=== PATIENT | male | born 1950 | race Caucasian/White ===

== ENCOUNTER 2022-10-29 07:38 | Day surgery (SDC) | payer MEDICARE, OTHER ==
[~2022-10-29] VITALS: Ht 175.3 cm; Wt 90.1 kg
[2022-10-29 08:59] VITALS: BP 170/90; PULSE 100; TEMP 98.5
[2022-10-29] MEDS ORDERED: ELIQUIS 5MG PO (09:01)
[2022-10-29] MEDS ORDERED: FOLIC ACID 11 MG/TA1 PO (09:02)
[2022-10-29] MEDS ORDERED: NORVASC 10MG10 MG PO (09:02)
[2022-10-29] MEDS ORDERED: PRINIVIL40 MG PO (09:04)
[2022-10-29] MEDS ORDERED: NORCO 325 MG-51 TAB PO (10:05)
[2022-10-29 10:10] VITALS: BP 163/78; PULSE 108; TEMP 97.5
[2022-10-29 10:25] VITALS: BP 183/88; PULSE 107
[2022-10-29 10:40] VITALS: BP 170/99; PULSE 124
--- NOTE | 2022-10-29 11:15 | NUR ---
1010-PT TO BAY 5 PER CART FROM OR. REPORT RECEIVED. VS OBTAINED. CALL LIGHT WITHIN REACH. PT RESTING COMFORTABLY AND DENIES ANY NEEDS AT THIS TIME. WILL CONTINUE TO MONITOR. 1030-PT TOLERATING APPLE JUICE AND DENIES ANYTHING TO EAT. PT VOIDED WITHOUT DIFFICULTY. 1045-IV DC'D AT THIS TIME. PT DRESSED WITHOUT ASSISTANCE. 1050-DISCHARGE EDUCATION COMPLETED WITH PT AND HIS . VERBALIZED UNDERSTANDING OF HOME AND FOLLOW UP CARE. ALL QUESTIONS ANSWERED. DISCHARGE PAPERWORK GIVEN TO PT. 1115-PT OFF UNIT PER WHEELCHAIR. PT DISCHARGED TO HOME WITH PER PERSONAL VEHICLE.
== END 2022-10-29 11:15 | disposition home or self-care (01) ==
LOC: SDCO 07:38
DX: C34.91 Malignant neoplasm of unspecified part of right bronchus or lung (principal); J90 Pleural effusion, not elsewhere classified
CPT/HCPCS: C1788; J0690; J1644; J2250; J2704; J2765; J7120

== ENCOUNTER 2022-12-21 06:47 | Outpatient (CLI) | payer MEDICARE ==
[~2022-12-21] VITALS: Ht 175.3 cm; Wt 88.8 kg
[~2022-12-21 06:47] MED LIST: ELIQUIS 5MG PO; FOLIC ACID 11 MG/TA1 PO; NORCO 325 MG-51 TAB PO; NORVASC 10MG10 MG PO; PRINIVIL40 MG PO
[2022-12-21 09:10] VITALS: BP 149/89; PULSE 84; TEMP 97.2
[2022-12-21 09:25] VITALS: BP 149/78; PULSE 76
[2022-12-21] MEDS ORDERED: DECADRON0.5 MG PO (09:32)
[2022-12-21] MEDS ORDERED: GLUCOSAMINE & C1 CA2 (09:34)
[2022-12-21] MEDS ORDERED: CENTRUM1 TA1 (09:34)
[2022-12-21 09:40] VITALS: BP 146/76; PULSE 76
--- NOTE | 2022-12-21 10:00 | NUR ---
09 LYING ON CART. AWAKE, ALERT. RESP UNLABORED. DENIES DYSPNEA. BANDAID RIGHT POSTERIOR CHEST CLEAAN DRY AND INTACT. HOB ELEVATED 40 DEGREES. CALLLIGHT AT SIDE. IN ROOM. 924 AWAKE, ALERT. RESP UNLABORED 54 DISCHARGE INSTRUCTIONS REVIEWED. PATIENT AND VERBALIZE UNDERSTANDING. COPY PROVIDED IN DISCHARGE FOLDER 0969 SITS ON EDGE OF BED. DRESSES SELF
[2022-12-21 10:53] VITALS: BP 154/78; PULSE 90; TEMP 97.2
== END 2022-12-21 10:03 | disposition home or self-care (01) ==
LOC: SDCO 06:47
DX: J91.0 Malignant pleural effusion (principal); C34.91 Malignant neoplasm of unspecified part of right bronchus or lung; Z79.01 Long term (current) use of anticoagulants; Z86.718 Personal history of other venous thrombosis and embolism; Z77.22 Contact with and (suspected) exposure to environmental tobacco smoke (acute) (chronic)
CPT/HCPCS: 19804

== ENCOUNTER 2023-11-10 12:27 | Emergency (ER) | payer OTHER ==
[~2023-11-10] VITALS: Ht 175.3 cm; Wt 86.4 kg
[~2023-11-10 12:27] MED LIST changes: +CENTRUM1 TA1; +DECADRON0.5 MG PO; +GLUCOSAMINE & C1 CA2
[2023-11-10 12:29] VITALS: TEMP 97.8
[2023-11-10 12:56] LABS: BASO % 0.3 % (0.0-2.0); EOS # 0.1 K/mm3 (0.0-0.7); EOS % 1.5 % (0.0-4.0); GRAN # 4.6 K/mm3 (1.4-6.5); GRAN % 69.8 % (42.2-75.2); HEMOGLOBIN 10.5 g/dl (13.5-18.0); LYMPH # 0.9 K/mm3 (1.2-3.4); LYMPH % 13.2 % (20.0-51.0); MEAN CELL VOLUME 93 fl (80.0-100.0); MEAN CORPUSCULAR HEMOGLOBIN 29 pg (27-31); MEAN CORPUSCULAR HGB CONC 31 g/dl (33.0-37.0); MEAN PLATELET VOLUME 9.4 fl (7.4-10.4); MONO % 14.7 % (1.7-9.3); PLATELET COUNT 248 K/mm3 (130-400); RED BLOOD COUNT 3.61 M/mm3 (4.20-5.60); REDCELL DISTRIBUTION WIDTH-CV 15.3 % (11.5-14.5)
[2023-11-10 12:57] LABS: HEMATOCRIT 33.4 % (42.0-52.0)
[2023-11-10 13:09] LABS: PH 5.5 (5.0-8.5); URINE APPEARANCE CLEAR (CLEAR/HAZY); URINE BLOOD NEGATIVE (NEGATIVE); URINE COLOR Dark Yellow (YELLOW); URINE GLUCOSE NEGATIVE (NEGATIVE); URINE KETONE TRACE (NEGATIVE); URINE NITRATE NEGATIVE (NEGATIVE); URINE PROTEIN(semi-quant) TRACE (NEGATIVE)
[2023-11-10 13:17] LABS: COLLECTION METHOD CLEAN CATCH
[2023-11-10 13:21] LABS: ALBUMIN 2.9 gm/dL (3.4-4.8); BILIRUBIN,TOTAL 0.5 mg/dL (0.2-1.2); CALCIUM 9.5 mg/dL (8.4-10.2); CREATININE, serum 0.76 mg/dL (0.72-1.25); POTASSIUM 3.9 mmol/L (3.5-4.5); TOTAL PROTEIN 6.6 gm/dL (6.2-8.1)
[2023-11-10] MEDS ORDERED: dilTIAZem 25 MG/5 ML VIAL IV ONE (14:15)
[2023-11-10] MEDS ORDERED: NS 1,000 ML IV ONE (14:15)
[2023-11-10] MEDS ORDERED: Acetaminophen 500 MG TAB PO ONE (14:15)
[2023-11-10 15:12] VITALS: BP 141/84; PULSE 73
== END 2023-11-10 15:12 | disposition home or self-care (01) ==
LOC: COL.ER 12:27
PROVIDERS: Personal Emergency Response Attendant
DX: C34.92 Malignant neoplasm of unspecified part of left bronchus or lung (principal); J90 Pleural effusion, not elsewhere classified; E86.0 Dehydration; R41.82 Altered mental status, unspecified
CPT/HCPCS: J7030